=== PATIENT | female | born 1940 | race Caucasian/White ===

== ENCOUNTER 2022-08-08 17:10 | Emergency (ER) | payer MEDICARE ==
[~2022-08-08] VITALS: Ht 154.9 cm; Wt 58.1 kg
[~2022-08-08 17:10] MED LIST: ASPI-556 PO; ATOR40TA69 PO; CALC-190 PO; CARV6.25 PO; LEVO500T2 PO; LEVO75TA10 PO; LISI40TA9 PO; MULT-1203 PO; OMEG-148 PO; VIT PO
[2022-08-08 18:44] VITALS: BP 216/97
[2022-08-08] MEDS ORDERED: LIDOCAINE HCL-MPF 2% 5ML VIAL ONE (20:00)
[2022-08-08] MEDS ORDERED: TETANUS/DIPHTHERIA TOXOID [ADULT] 0.5 ML VIAL IM ONE (20:30)
== END 2022-08-08 21:42 | disposition home or self-care (01) ==
LOC: EDH 17:10
DX: S51.011A Laceration without foreign body of right elbow, initial encounter (principal); S00.81XA Abrasion of other part of head, initial encounter; I10 Essential (primary) hypertension; Z79.899 Other long term (current) drug therapy; Z79.82 Long term (current) use of aspirin; W18.39XA Other fall on same level, initial encounter; Y93.89 Activity, other specified; Y92.89 Other specified places as the place of occurrence of the external cause; Y99.8 Other external cause status
CPT/HCPCS: 99284; 90714; 73070; 73562; 90471; 12001; J3490

== ENCOUNTER 2022-08-16 11:00 | Emergency (ER) | payer MEDICARE ==
[~2022-08-16] VITALS: Ht 154.9 cm; Wt 58.1 kg
[2022-08-16 11:05] VITALS: BP 197/80
== END 2022-08-16 12:04 | disposition home or self-care (01) ==
LOC: EDH 11:00
DX: S51.011D Laceration without foreign body of right elbow, subsequent encounter (principal); I10 Essential (primary) hypertension; Z79.82 Long term (current) use of aspirin; Z79.2 Long term (current) use of antibiotics; Z79.899 Other long term (current) drug therapy; W18.39XD Other fall on same level, subsequent encounter
CPT/HCPCS: 99281